=== PATIENT | female | born 1995 ===

== ENCOUNTER 2021-01-08 21:27 | Inpatient (IN) | payer OTHER ==
[2021-01-08] MEDS ORDERED: Water For Irrigation,Sterile 1,000 ML Container IRR PRN (22:35)
[2021-01-08] MEDS ORDERED: Terbutaline 1 MG/ML SDV SUBCUT PRN (22:35)
[2021-01-08] MEDS ORDERED: Nalbuphine 10 MG/1 ML Vial IVPUSH PRN (22:35)
[2021-01-08] MEDS ORDERED: Methylergonovine 0.2 MG/1 ML Amp IM PRN (22:35)
[2021-01-08] MEDS ORDERED: Sodium Chloride 0.9% 2.5 ML Syringe FLUSH PRN (22:35)
[2021-01-08] MEDS ORDERED: Sodium Chloride 0.9% 10 ML SDV IV PRN (22:35)
[2021-01-08] MEDS ORDERED: Lidocaine 1% 50 ML MDV INJECT PRN (22:35)
[2021-01-08] MEDS ORDERED: Misoprostol 200 MCG Tab PO PRN (22:35)
[2021-01-08] MEDS ORDERED: Sodium Chloride 0.9% 10 ML Syringe FLUSH PRN (22:35)
[2021-01-08] MEDS ORDERED: Ondansetron 4 MG/2 ML SDV IVPUSH PRN (22:35)
[2021-01-08] MEDS ORDERED: Carboprost Tromethamine 250 MCG/1 ML Amp IM PRN (22:35)
[2021-01-08] MEDS ORDERED: Butorphanol 1 MG/ML SDV IVPUSH PRN (22:35)
[2021-01-08] MEDS ORDERED: Tranexamic Acid 1,000 MG in Sodium Chloride 0.9% 100 ML IV PRN (22:35)
[2021-01-08] MEDS ORDERED: Oxytocin/0.9 % Sodium Chloride 30 UNIT/500 ML BAG IV SCH (22:45)
[2021-01-08] MEDS ORDERED: Misoprostol 25 MCG (1/4 of 100 MCG) Tab VAG PRN (23:00)
[2021-01-08] MEDS ORDERED: Ampicillin 2 GM in Sodium Chloride 0.9% 100 ML IV ONE (23:00)
[2021-01-08] MEDS: Lactated Ringers 1,000 ML IV SCH (23:18)
[2021-01-09] MEDS ORDERED: Sodium Chloride 0.9% 50 ML ONE (02:25)
[2021-01-09] MEDS ORDERED: Ampicillin 1 GM Vial ONE ×2 (02:25→07:26)
[2021-01-09] MEDS ORDERED: Ampicillin 1 GM in Sodium Chloride 0.9% 50 ML IV SCH (03:00)
[2021-01-09] MEDS ORDERED: Misoprostol 25 MCG (1/4 of 100 MCG) Tab VAG PRN (03:00)
[2021-01-09] MEDS: Lactated Ringers 1,000 ML IV SCH ×3 (11:20→21:48)
[2021-01-09] MEDS: Ampicillin 1 GM in Sodium Chloride 0.9% 50 ML IV SCH ×4 (11:30→23:30)
[2021-01-09] MEDS ORDERED: Ropivacaine HCl/PF 100 ML ONE (20:14)
[2021-01-09] MEDS ORDERED: fentaNYL 100 MCG/2 ML SDV ONE (20:14)
--- NOTE | 2021-01-09 21:17 | PCM.PREANE ---
Preanesthetic Assessment - Procedure Proposed Procedure: Continuous Labor Epidural - Anesthesia/Transfusion/Family Hx Anesthesia History: Prior Anesthesia Without Reaction Family History of Anesthesia Reaction: No Transfusion History: No Prior Transfusion(s) - Review of Systems General: No Symptoms Pulmonary: No Symptoms Cardiovascular: No Symptoms Gastrointestinal: No Symptoms Neurological: No Symptoms Other: Reports: None - Physical Assessment Height: 5 ft 5 in Weight: 129.274 kg ASA Class: 3 Mental Status: Alert & Oriented x3 Airway Class: Mallampati = 2 Dentition: Reports: Normal Dentition Thyro-Mental Finger Breadths: 3 Mouth Opening Finger Breadths: 3 ROM/Head Extension: Full Lungs: Clear to Auscultation, Normal Respiratory Effort Cardiovascular: Regular Rate, Regular Rhythm - Lab Values: Laboratory Last Values WBC 7.16 K/uL (4.0-11.0) 01/08/21 22:04 RBC 4.33 M/uL (4.30-5.90) 01/08/21 22:04 Hgb 11.5 g/dL (12.0-16.0) L 01/08/21 22:04 Hct 35.9 % (36.0-46.0) L 01/08/21 22:04 MCV 82.9 fL (80.0-98.0) 01/08/21 22:04 MCH 26.6 pg (27.0-32.0) L 01/08/21 22:04 MCHC 32.0 g/dL (31.0-37.0) 01/08/21 22:04 RDW Std Deviation 43.8 fl (28.0-62.0) 01/08/21 22:04 RDW Coeff of Vera 14 % (11.0-15.0) 01/08/21 22:04 Plt Count 217 K/uL (150-400) 01/08/21 22:04 MPV 11.90 fL (7.40-12.00) 01/08/21 22:04 Nucleated RBC % 0.0 /100WBC 01/08/21 22:04 Nucleated RBCs # 0 K/uL 01/08/21 22:04 SARS-CoV-2 RNA (JIL) NEGATIVE (NEGATIVE) 01/08/21 22:15 Blood Type O POSITIVE 01/08/21 22:04 Antibody Screen NEGATIVE 01/08/21 22:04 - Allergies Allergies/Adverse Reactions: Allergies Allergy/AdvReac Type Severity Reaction Status Date / Time Influenza Virus Vaccines Allergy Severe Anaphylactic Verified 01/08/21 22:30 Shock - Anesthesia Plan Free Text/Narrative:: Continuous Labor Epidural - Acknowledgements Anesthesia Type Planned: Epidural Pt an Appropriate Candidate for the Planned Anesthesia: Yes Alternatives and Risks of Anesthesia Discussed w Pt/Guardian: Yes Pt/Guardian Understands and Agrees with Anesthesia Plan: Yes PreAnesthesia Questionnaire HEENT History: Reports: Impaired Vision, Other (See Below) Other HEENT History: wears glasses or contact lenses for impaired vision correction. Cardiovascular History: Reports: None Respiratory History: Reports: None Other Gastrointestinal History: GERD with Genitourinary History: Reports: None FARM SPECIALIST History: Reports: : 1 Para: 0 LMP (Approximate): Musculoskeletal History: Reports: None Neurological History: Reports: None Psychiatric History: Reports: Depression Endocrine/Metabolic History: Reports: Obesity/BMI 30+ Hematologic History: Reports: None Immunologic History: Reports: None Oncologic (Cancer) History: Reports: None Dermatologic History: Reports: None - Infectious Disease History Infectious Disease History: Reports: None - Past Surgical History HEENT Surgical History: Reports: Oral Surgery Other HEENT Surgeries/Procedures: [place] Teeth Endocrine Surgical History: Reports: None Dermatological Surgical History: Reports: None - SUBSTANCE USE Tobacco Use Status *Q: Former Tobacco User Tobacco Use Within Last Twelve Months: Cigarettes Second Hand Smoke Exposure: No Recreational Drug Use History: No - HOME MEDS Home Medications: Home Meds Citalopram Hydrobromide [Celexa] 10 mg PO DAILY 01/08/21 [History] Famotidine 20 mg PO DAILY 01/08/21 [History] Famotidine [Pepcid] 20 mg PO DAILY 01/08/21 [History] Vits #93/Iron Fum/FA [ Formula Tablet] 1 each PO DAILY 01/08/21 [History] - CURRENT (IN HOUSE) MEDS Current Meds: Current Medications Butorphanol Tartrate (Stadol) 1 mg IVPUSH Q1H PRN PRN Reason: Pain Carboprost Tromethamine (Hemabate Ds) 250 mcg IM ASDIRECTED PRN PRN Reason: Post Hemorrhage Oxytocin/Sodium Chloride (Oxytocin 30 Unit/500 Ml-Ns) 30 unit in 500 mls @ 999 mls/hr IV TITRATE JONO Tranexamic Acid 1,000 mg/ (Sodium Chloride) 110 mls @ 660 mls/hr IV ONETIME PRN PRN Reason: Bleeding Oxytocin/Sodium Chloride (Oxytocin 30 Unit/500 Ml-Ns) 30 unit in 500 mls @ 2 mls/hr IV TITRATE [facility]; Protocol Last Titration: 01/09/21 19:19 Dose: 14 munits/min, 14 mls/hr Documented by: Lactated Ringer's (Ringers, Lactated) 1,000 mls @ 150 mls/hr IV ASDIRECTED [facility] Last Admin: 01/09/21 19:57 Dose: 999 mls/hr Documented by: Ampicillin Sodium 1 gm/ Sodium (Chloride) 50 mls @ 100 mls/hr IV Q4H [facility] Last Admin: 01/09/21 19:37 Dose: 100 mls/hr Documented by: Lidocaine HCl (Xylocaine 1%) 50 ml INJECT ONETIME PRN PRN Reason: Laceration repair Methylergonovine Maleate (Methergine) 0.2 mg IM ASDIRECTED PRN PRN Reason: Post Hemorrhage Misoprostol (Cytotec) 200 mcg PO ONETIME PRN PRN Reason: Post Hemorrhage Misoprostol (Cytotec) 25 mcg VAG ONETIME PRN PRN Reason: Cervical Ripening Last Admin: 01/08/21 23:30 Dose: 25 mcg Documented by: Misoprostol (Cytotec) 25 mcg VAG Q4H PRN PRN Reason: Cervical Ripening Last Admin: 01/09/21 03:35 Dose: 25 mcg Documented by: Nalbuphine HCl (Nubain) 10 mg IVPUSH Q1H PRN PRN Reason: Pain (severe 7-10) Ondansetron HCl (Zofran) 4 mg IVPUSH Q4H PRN PRN Reason: Nausea/Vomiting Sodium Chloride (Saline Flush) 10 ml FLUSH ASDIRECTED PRN PRN Reason: Keep Vein Open Sodium Chloride (Saline Flush) 2.5 ml FLUSH ASDIRECTED PRN PRN Reason: Keep Vein Open Sodium Chloride (Normal Saline) 10 ml IV ASDIRECTED PRN PRN Reason: IV Use Sterile Water (Sterile Water For Irrigation) 1,000 ml IRR ASDIRECTED PRN PRN Reason: delivery Terbutaline Sulfate (Brethine) 0.25 mg SUBCUT ASDIRECTED PRN PRN Reason: Tacysystole Discontinued Medications Ampicillin Sodium (Ampicillin) Confirm Administered Dose 1 gm .ROUTE .STK-MED ONE Stop: 01/09/21 02:26 Last Admin: 01/09/21 03:11 Dose: 1 gm Documented by: Ampicillin Sodium (Ampicillin) Confirm Administered Dose 1 gm .ROUTE .STK-MED ONE Stop: 01/09/21 07:27 Last Admin: 01/09/21 07:34 Dose: 1 gm Documented by: Fentanyl (Sublimaze) Confirm Administered Dose 200 mcg .ROUTE .STK-MED ONE Stop: 01/09/21 20:15 Ampicillin Sodium 2 gm/ Sodium (Chloride) 100 mls @ 200 mls/hr IV ONETIME ONE Stop: 01/08/21 23:29 Last Admin: 01/08/21 23:19 Dose: 200 mls/hr Documented by: Ampicillin Sodium 1 gm/ Sodium (Chloride) 50 mls @ 100 mls/hr IV Q4H JON[facility] Last Admin: 01/09/21 03:11 Dose: Not Given Documented by: Sodium Chloride (Normal Saline) Confirm Administered Dose 50 mls @ as directed .ROUTE .STK-MED ONE Stop: 01/09/21 02:26 Last Admin: 01/09/21 03:11 Dose: 100 mls/hr Documented by: Ropivacaine (Naropin 0.2%) Confirm Administered Dose 100 mls @ as directed .ROUTE .STK-MED ONE Stop: 01/09/21 20:15
[2021-01-09 23:11] LABS: BLOOD UREA NITROGEN,BUN 7 mg/dL (7.0-18.0); CARBON DIOXIDE,CO2 19.3 mmol/L (21.0-32.0); CHLORIDE,CL 105 mmol/L (98-107); GLUCOSE RANDOM 80 mg/dL (74-106); POTASSIUM,K 3.6 mmol/L (3.5-5.1); SODIUM,NA 139 mmol/L (136-145)
[2021-01-10] MEDS: Ampicillin 1 GM in Sodium Chloride 0.9% 50 ML IV SCH (03:21)
[2021-01-10] MEDS: Lactated Ringers 1,000 ML IV SCH (03:21)
[2021-01-10] MEDS: Oxytocin/0.9 % Sodium Chloride 30 UNIT/500 ML BAG IV SCH ×2 (06:07→06:27)
[2021-01-10] MEDS ORDERED: Acetaminophen 500 MG Tab PO PRN ×2 (06:59)
[2021-01-10] MEDS ORDERED: oxyCODONE 5 MG Tab PO PRN (06:59)
[2021-01-10] MEDS ORDERED: Benzocaine/Menthol 20%-0.5% Spray 78 GM Cannister TOP PRN (06:59)
[2021-01-10] MEDS ORDERED: Bisacodyl 10 MG Supp RECTAL PRN (06:59)
[2021-01-10] MEDS ORDERED: Lanolin 100% Cream 7 GM Tube TOP PRN (06:59)
[2021-01-10] MEDS ORDERED: Witch Hazel Medicated Pads 40/Jar TOP PRN (06:59)
[2021-01-10] MEDS ORDERED: Ibuprofen 800 MG Tab PO PRN (06:59)
[2021-01-10] MEDS ORDERED: Ibuprofen 400 MG Tab PO PRN (06:59)
[2021-01-10] MEDS ORDERED: Docusate Sodium 100 MG Cap PO PRN (06:59)
--- NOTE | 2021-01-10 07:04 | PCM.DEL ---
L & D Note - General Info Date of Service: 01/10/21 - Delivery Note Cervical Ripening Method: Balloon Device, Misoprostil, Oxytocin Delivery Outcome: Livebirth Infant Delivery Method: Spontaneous Vaginal Delivery-Single Presentation: Left Occiput Anterior (AKIN) Nuchal Cord: Present Anesthesia Type: Epidural Anesthetic: Lidocaine (Xylocaine) 1% Plain Local Anesthetic Volume: 3cc Amniotic Fluid Description: Clear Episiotomy Type: Right Mediolateral Laceration: Other (clitorial ) Suture type: Vicryl Suture size: 3-0 Placenta: Intact Cord: 3 Vessels Estimated Blood Loss: 300 Resuscitation Needed: No : Suctioned, Bulb Syringe Score 1 min: 6 Score 5 min: 8 Delivery Comments (Free Text/Narrative):: Live Female delivered at 6.06am , 6/8 weight 3590g - General Info Date of Service: 01/10/21 - Patient Data Weight - Most Recent: 129.274 kg Lab Results Last 24 Hours: Laboratory Results - last 24 hr 01/09/21 01/09/21 01/09/21 Range/Units 22:20 22:20 22:35 Sodium 139 (136-145) mmol/L Potassium 3.6 (3.5-5.1) mmol/L Chloride 105 (98-107) mmol/L Carbon Dioxide 19.3 L (21.0-32.0) mmol/L BUN 7 (7.0-18.0) mg/dL Creatinine 0.7 (0.6-1.0) mg/dL Est Cr Clr Drug Dosing 109.59 mL/min Estimated GFR (MDRD) > 60.0 ml/min Glucose 80 (74-106) mg/dL Calcium 7.8 L (8.5-10.1) mg/dL Total Bilirubin 0.4 (0.2-1.0) mg/dL AST 17 (15-37) IU/L ALT 16 (14-63) IU/L Alkaline Phosphatase 169 H (46-116) U/L Total Protein 5.9 L (6.4-8.2) g/dL Albumin 2.1 L (3.4-5.0) g/dL Globulin 3.8 (2.6-4.0) g/dL Albumin/Globulin Ratio 0.6 L (0.9-1.6) Urine Color YELLOW Urine Appearance CLEAR Urine pH 5.5 (5.0-8.0) Ur Specific [place] 1.010 (1.001-1.035) Urine Protein NEGATIVE (NEGATIVE) mg/dL Urine Glucose (UA) NEGATIVE (NEGATIVE) mg/dL Urine Ketones 40 H (NEGATIVE) mg/dL Urine Occult Blood MODERATE H (NEGATIVE) Urine Nitrite NEGATIVE (NEGATIVE) Urine Bilirubin NEGATIVE (NEGATIVE) Urine Urobilinogen 0.2 (<2.0) EU/dL Ur Leukocyte Esterase NEGATIVE (NEGATIVE) Urine RBC 1-3 (0-2/HPF) Urine WBC 0-2 (0-5/HPF) Ur Epithelial Cells FEW (NONE-FEW) Amorphous Sediment LIGHT (NEGATIVE) Urine Bacteria FEW (NEGATIVE) Urine Mucus LIGHT (NONE-MOD) Ur Random Creatinine 48.3 mg/dL U Random Total Protein 6.1 (<11.9) mg/dL Protein/Creatinin Ratio 0.1 Med Orders - Current: Current Medications Butorphanol Tartrate (Stadol) 1 mg IVPUSH Q1H PRN PRN Reason: Pain Carboprost Tromethamine (Hemabate Ds) 250 mcg IM ASDIRECTED PRN PRN Reason: Post Hemorrhage Oxytocin/Sodium Chloride (Oxytocin 30 Unit/500 Ml-Ns) 30 unit in 500 mls @ 999 mls/hr IV TITRATE [facility] Last Admin: 01/10/21 06:27 Dose: 250 mls/hr Documented by: Tranexamic Acid 1,000 mg/ (Sodium Chloride) 110 mls @ 660 mls/hr IV ONETIME PRN PRN Reason: Bleeding Oxytocin/Sodium Chloride (Oxytocin 30 Unit/500 Ml-Ns) 30 unit in 500 mls @ 2 mls/hr IV TITRATE [facility]; Protocol Last Titration: 01/10/21 06:07 Dose: 0 munits/min, 0 mls/hr Documented by: Lactated Ringer's (Ringers, Lactated) 1,000 mls @ 150 mls/hr IV ASDIRECTED JONO Last Admin: 01/10/21 03:21 Dose: 150 mls/hr Documented by: Lidocaine HCl (Xylocaine 1%) 50 ml INJECT ONETIME PRN PRN Reason: Laceration repair Last Admin: 01/10/21 06:05 Dose: 50 ml Documented by: Methylergonovine Maleate (Methergine) 0.2 mg IM ASDIRECTED PRN PRN Reason: Post Hemorrhage Misoprostol (Cytotec) 200 mcg PO ONETIME PRN PRN Reason: Post Hemorrhage Nalbuphine HCl (Nubain) 10 mg IVPUSH Q1H PRN PRN Reason: Pain (severe 7-10) Ondansetron HCl (Zofran) 4 mg IVPUSH Q4H PRN PRN Reason: Nausea/Vomiting Sodium Chloride (Saline Flush) 10 ml FLUSH ASDIRECTED PRN PRN Reason: Keep Vein Open Sodium Chloride (Saline Flush) 2.5 ml FLUSH ASDIRECTED PRN PRN Reason: Keep Vein Open Sodium Chloride (Normal Saline) 10 ml IV ASDIRECTED PRN PRN Reason: IV Use Sterile Water (Sterile Water For Irrigation) 1,000 ml IRR ASDIRECTED PRN PRN Reason: delivery Last Admin: 01/10/21 06:28 Dose: 1,000 ml Documented by: Terbutaline Sulfate (Brethine) 0.25 mg SUBCUT ASDIRECTED PRN PRN Reason: Tacysystole Discontinued Medications Ampicillin Sodium (Ampicillin) Confirm Administered Dose 1 gm .ROUTE .STK-MED ONE Stop: 01/09/21 02:26 Last Admin: 01/09/21 03:11 Dose: 1 gm Documented by: Ampicillin Sodium (Ampicillin) Confirm Administered Dose 1 gm .ROUTE .STK-MED ONE Stop: 01/09/21 07:27 Last Admin: 01/09/21 07:34 Dose: 1 gm Documented by: Fentanyl (Sublimaze) Confirm Administered Dose 200 mcg .ROUTE .STK-MED ONE Stop: 01/09/21 20:15 Last Admin: 01/09/21 23:32 Dose: Not Given Documented by: Ampicillin Sodium 2 gm/ Sodium (Chloride) 100 mls @ 200 mls/hr IV ONETIME ONE Stop: 01/08/21 23:29 Last Admin: 01/08/21 23:19 Dose: 200 mls/hr Documented by: Ampicillin Sodium 1 gm/ Sodium (Chloride) 50 mls @ 100 mls/hr IV Q4H [facility]ON[facility] Last Admin: 01/09/21 03:11 Dose: Not Given Documented by: Sodium Chloride (Normal Saline) Confirm Administered Dose 50 mls @ as directed .ROUTE .STK-MED ONE Stop: 01/09/21 02:26 Last Admin: 01/09/21 03:11 Dose: 100 mls/hr Documented by: Ampicillin Sodium 1 gm/ Sodium (Chloride) 50 mls @ 100 mls/hr IV Q4H [facility] Last Admin: 01/10/21 03:21 Dose: 100 mls/hr Documented by: Ropivacaine (Naropin 0.2%) Confirm Administered Dose 100 mls @ as directed .ROUTE .STK-MED ONE Stop: 01/09/21 20:15 Last Admin: 01/09/21 23:32 Dose: Not Given Documented by: Misoprostol (Cytotec) 25 mcg VAG ONETIME PRN PRN Reason: Cervical Ripening Last Admin: 01/08/21 23:30 Dose: 25 mcg Documented by: Misoprostol (Cytotec) 25 mcg VAG Q4H PRN PRN Reason: Cervical Ripening Last Admin: 01/09/21 03:35 Dose: 25 mcg Documented by: - Problem List & Annotations (1) Vaginal delivery SNOMED Code(s): 201153631 Code(s): O80 - ENCOUNTER FOR FULL-TERM UNCOMPLICATED DELIVERY Status: Acute Current Visit: Yes - Problem List Review Problem List Initiated/Reviewed/Updated: Yes - My Orders Last 24 Hours: My Active Orders 01/10/21 06:59 Acetaminophen [Tylenol Extra Strength] 1,000 mg PO Q4H PRN Acetaminophen [Tylenol Extra Strength] 500 mg PO Q4H PRN Benzocaine/Menthol [Dermoplast Pain Relief 20%-0.5% [place]] 78 gm TOP ASDIRECTED PRN Docusate Sodium [Colace] 100 mg PO BID PRN Ibuprofen [Motrin] 400 mg PO Q4H PRN Ibuprofen [Motrin] 800 mg PO Q6H PRN Lanolin [Lansinoh HPA] See Dose Instructions TOP ASDIRECTED PRN bisacodyL [Dulcolax] 10 mg RECTAL ONETIME PRN oxyCODONE 5 mg PO Q2H PRN witch Tonny [Tucks] 1 pad TOP ASDIRECTED PRN Resuscitation Status Routine 01/10/21 07:00 Patient Status [ADT] Routine May Shower [RC] ASDIRECTED Up ad Ragini [RC] ASDIRECTED Vital Signs [RC] PER UNIT ROUTINE Assess Lochia [WOMSER] Per Unit Routine Assess Uterine Involution [WOMSER] Per Unit Routine Peripheral IV Discontinue [OM.PC] Routine 01/11/21 05:11 HEMOGLOBIN/HEMATOCRIT,HH [HEME] Timed
--- NOTE | 2021-01-10 08:40 | OR ---
SURGEON: NORMA ALVAREZ DATE OF PROCEDURE: 01/10/2021 PREOPERATIVE DIAGNOSIS: A 25-year-old, G1, P0, at 39 weeks 3 days, admitted for induction of labor. POSTOPERATIVE DIAGNOSIS: A 25-year-old, G1, P0, at 39 weeks 3 days, admitted for induction of labor. PROCEDURE: Normal spontaneous vaginal delivery and repair of right mediolateral episiotomy and also clitoral laceration. ESTIMATED BLOOD LOSS: 300. IV FLUIDS: Pitocin running. COMPLICATION: None. ANESTHESIA: Epidural. NOTES AND FINDING: Live female delivered at 6:06 a.m. score is 6 and 8. Weight is 3590 g. BRIEF HISTORY ABOUT THE PATIENT: She is a 25-year-old, G1, P0, worked in for induction of labor. She was late transfer to [facility] from [facility]. When she started induction, she got Cytotec. After the Cytotec she got Cook Balloon and pitocin was started. She was AROM'd . IUPC was also placed. She had intermittent episodes of category 2 heart tracing, which recovered to the baseline. PROCEDURE: The patient then made normal labor progress and became fully dilated. The patient being fully dilated, she was encouraged to push. The introitus was noted to be constricted , hence lidocaine injected at the RML region of the posterior fourchette, Then a bandit scissor was used to make a 1cm incision at the infiltrated region. With good pushing effort, she delivered the head. There was a cord noted around the neck. She spontaneously pushed the body out. was placed on maternal abdomen. Delayed cord clamping was done for about 1 minute and then infant was handed over to the nursery nurses. The placenta was then delivered via controlled cord traction. The cord blood gases were obtained. The perineum was inspected. There was a midline clitoral laceration about 1 cm, which was repaired with 3-0 Vicryl. Mediolateral episiotomy was also repaired. Uterus was noted to be contracted. The patient tolerated the procedure well. All pad counts were correct x2. RADHA / LUCA /[id number] [facility] SYSTEMAbner
--- NOTE | 2021-01-10 10:55 | PCM48HPAN ---
Post Anesthesia Note - EVALUATION WITHIN 48HRS OF ANESTHETIC Vital Signs in Normal Range: Yes Patient Participated in Evaluation: Yes Respiratory Function Stable: Yes Airway Patent: Yes Cardiovascular Function Stable: Yes Hydration Status Stable: Yes Pain Control Satisfactory: Yes Nausea and Vomiting Control Satisfactory: Yes Mental Status Recovered: Yes Vital Signs: Last Vital Signs Temp 36.9 C 01/10/21 09:50 Pulse 67 01/10/21 09:50 Resp 16 01/10/21 09:50 BP 129/71 01/10/21 09:50 Pulse Ox 95 01/10/21 09:50 - COMMENTS/OBSERVATIONS Free Text/Narrative:: No anesthesia complications or concerns noted.
--- NOTE | 2021-01-11 08:50 | PCM.PNPP ---
- General Info Date of Service: 01/11/21 Functional Status: Reports: Pain Controlled, Tolerating Diet, Ambulating, Urinating - Review of Systems General: Reports: No Symptoms HEENT: Reports: No Symptoms Pulmonary: Reports: No Symptoms Cardiovascular: Reports: No Symptoms Gastrointestinal: Reports: No Symptoms Genitourinary: Reports: No Symptoms Musculoskeletal: Reports: No Symptoms Skin: Reports: No Symptoms Neurological: Reports: No Symptoms Psychiatric: Reports: No Symptoms - Patient Data Vital Signs - Most Recent: Last Vital Signs Temp 36.4 C 01/11/21 07:54 Pulse 57 L 01/11/21 07:54 Resp 16 01/11/21 07:54 BP 147/77 H 01/11/21 07:54 Pulse Ox 97 01/11/21 07:54 Weight - Most Recent: 285 lb Lab Results - Last 24 Hours: Laboratory Results - last 24 hr 01/08/21 01/11/21 Range/Units 22:04 06:06 Hgb 10.4 L (12.0-16.0) g/dL Hct 32.5 L (36.0-46.0) % RPR Non-Reac (Non-Reac) Med Orders - Current: Current Medications Acetaminophen (Tylenol Extra Strength) 500 mg PO Q4H PRN PRN Reason: Pain Acetaminophen (Tylenol Extra Strength) 1,000 mg PO Q4H PRN PRN Reason: Pain Benzocaine/Menthol (Dermoplast Pain Relief 20%-0.5% [place]) 78 gm TOP ASDIRECTED PRN PRN Reason: Perineal Comfort Measure Last Admin: 01/10/21 08:30 Dose: 1 canister Documented by: Bisacodyl (Dulcolax) 10 mg RECTAL ONETIME PRN PRN Reason: Constipation Docusate Sodium (Colace) 100 mg PO BID PRN PRN Reason: Constipation Emollient Ointment (Lansinoh Hpa) 0 gm TOP ASDIRECTED PRN PRN Reason: Sore Nipples Last Admin: 01/10/21 08:29 Dose: 1 tube Documented by: Ibuprofen (Motrin) 400 mg PO Q4H PRN PRN Reason: Pain Ibuprofen (Motrin) 800 mg PO Q6H PRN PRN Reason: Pain Last Admin: 01/10/21 23:25 Dose: 800 mg Documented by: Oxycodone HCl (Oxycodone) 5 mg PO Q2H PRN PRN Reason: Pain Sodium Chloride (Saline Flush) 10 ml FLUSH ASDIRECTED PRN PRN Reason: Keep Vein Open Sodium Chloride (Saline Flush) 2.5 ml FLUSH ASDIRECTED PRN PRN Reason: Keep Vein Open Sodium Chloride (Normal Saline) 10 ml IV ASDIRECTED PRN PRN Reason: IV Use Witangeline Villalbael (Tucks) 1 pad TOP ASDIRECTED PRN PRN Reason: comfort care Last Admin: 01/10/21 08:29 Dose: 1 pad Documented by: Discontinued Medications Ampicillin Sodium (Ampicillin) Confirm Administered Dose 1 gm .ROUTE .STK-MED ONE Stop: 01/09/21 02:26 Last Admin: 01/09/21 03:11 Dose: 1 gm Documented by: Ampicillin Sodium (Ampicillin) Confirm Administered Dose 1 gm .ROUTE .STK-MED ONE Stop: 01/09/21 07:27 Last Admin: 01/09/21 07:34 Dose: 1 gm Documented by: Butorphanol Tartrate (Stadol) 1 mg IVPUSH Q1H PRN PRN Reason: Pain Carboprost Tromethamine (Hemabate Ds) 250 mcg IM ASDIRECTED PRN PRN Reason: Post Hemorrhage Fentanyl (Sublimaze) Confirm Administered Dose 200 mcg .ROUTE .STK-MED ONE Stop: 01/09/21 20:15 Last Admin: 01/09/21 23:32 Dose: Not Given Documented by: Oxytocin/Sodium Chloride (Oxytocin 30 Unit/500 Ml-Ns) 30 unit in 500 mls @ 999 mls/hr IV TITRATE JONO Last Admin: 01/10/21 06:27 Dose: 250 mls/hr Documented by: Tranexamic Acid 1,000 mg/ (Sodium Chloride) 110 mls @ 660 mls/hr IV ONETIME PRN PRN Reason: Bleeding Oxytocin/Sodium Chloride (Oxytocin 30 Unit/500 Ml-Ns) 30 unit in 500 mls @ 2 mls/hr IV TITRATE JONO; Protocol Last Titration: 01/10/21 06:07 Dose: 0 munits/min, 0 mls/hr Documented by: Ampicillin Sodium 2 gm/ Sodium (Chloride) 100 mls @ 200 mls/hr IV ONETIME ONE Stop: 01/08/21 23:29 Last Admin: 01/08/21 23:19 Dose: 200 mls/hr Documented by: Ampicillin Sodium 1 gm/ Sodium (Chloride) 50 mls @ 100 mls/hr IV Q4H [facility] Last Admin: 01/09/21 03:11 Dose: Not Given Documented by: Lactated Ringer's (Ringers, Lactated) 1,000 mls @ 150 mls/hr IV ASDIRECTED JONO Last Admin: 01/10/21 03:21 Dose: 150 mls/hr Documented by: Sodium Chloride (Normal Saline) Confirm Administered Dose 50 mls @ as directed .ROUTE .[facility]-MED ONE Stop: 01/09/21 02:26 Last Admin: 01/09/21 03:11 Dose: 100 mls/hr Documented by: Ampicillin Sodium 1 gm/ Sodium (Chloride) 50 mls @ 100 mls/hr IV Q4H [facility] Last Admin: 01/10/21 03:21 Dose: 100 mls/hr Documented by: Ropivacaine (Naropin 0.2%) Confirm Administered Dose 100 mls @ as directed .ROUTE .[facility] ONE Stop: 01/09/21 20:15 Last Admin: 01/09/21 23:32 Dose: Not Given Documented by: Lidocaine HCl (Xylocaine 1%) 50 ml INJECT ONETIME PRN PRN Reason: Laceration repair Last Admin: 01/10/21 06:05 Dose: 50 ml Documented by: Methylergonovine Maleate (Methergine) 0.2 mg IM ASDIRECTED PRN PRN Reason: Post Hemorrhage Misoprostol (Cytotec) 200 mcg PO ONETIME PRN PRN Reason: Post Hemorrhage Misoprostol (Cytotec) 25 mcg VAG ONETIME PRN PRN Reason: Cervical Ripening Last Admin: 01/08/21 23:30 Dose: 25 mcg Documented by: Misoprostol (Cytotec) 25 mcg VAG Q4H PRN PRN Reason: Cervical Ripening Last Admin: 01/09/21 03:35 Dose: 25 mcg Documented by: Nalbuphine HCl (Nubain) 10 mg IVPUSH Q1H PRN PRN Reason: Pain (severe 7-10) Ondansetron HCl (Zofran) 4 mg IVPUSH Q4H PRN PRN Reason: Nausea/Vomiting Sterile Water (Sterile Water For Irrigation) 1,000 ml IRR ASDIRECTED PRN PRN Reason: delivery Last Admin: 01/10/21 06:28 Dose: 1,000 ml Documented by: Terbutaline Sulfate (Brethine) 0.25 mg SUBCUT ASDIRECTED PRN PRN Reason: Tacysystole - Interaction Disposition, : [place] at Bedside Infant Interaction: Holding Infant Feeding: Attempted ; Nursed Fair/Poor Support Person: Significant Other - Recovery Exam Fundal Tone: Firm Fundal Level: At Umbilicus Fundal Placement: Midline Lochia Amount: Scant, Small Lochia Color: Rubra/Red Perineum Description: Edematous Episiotomy/Laceration: Approximated Bladder Status: Nonpalpable, Voiding Urinary Elimination: Voided - Exam General: Alert, Oriented, Cooperative, No Acute Distress HEENT: Pupils Equal, Pupils Reactive Neck: Supple, Trachea Midline, No JVD Lungs: Normal Respiratory Effort GI/Abdominal Exam: Soft, Non-Tender, No Distention Extremities: Normal Inspection, Normal Range of Motion, Non-Tender, No Pedal Edema Skin: Warm, Dry, Intact Wound/Incisions: Healing Well Neurological: No New Focal Deficit Psy/Mental Status: Alert, Normal Affect, Normal Mood - Problem List Review Problem List Initiated/Reviewed/Updated: Yes - My Orders Last 24 Hours: My Active Orders 01/11/21 08:47 Ready for Discharge [RC] PER UNIT ROUTINE - Assessment Assessment:: 25yo PPD1 s/p , stable and recovering well. - Plan Plan:: - Recovering well, ambulating and tolerating PO - Hgb 10.4, denies s/s of anemia - continue to breastfeed Plan for discharge home today, reviewed care instructions.
== END 2021-01-11 11:00 | disposition home or self-care (01) | DRG 807 ==
LOC: MW.OBCHECK 21:27 → MW.OB 21:28 → MW.OBCHECK 22:35 → OBSVTOIN 01-10 06:06 → MW.OB 01-10 09:58
PROVIDERS: ADMIT Obstetrics & Gynecology; ATTEND Obstetrics & Gynecology
PROC: 10E0XZZ Delivery of Products of Conception, External Approach (ICD-10-PCS; principal; 2021-01-10)
PROC: 0U7C7ZZ Dilation of Cervix, Via Natural or Artificial Opening (ICD-10-PCS; 2021-01-10)
PROC: 3E0P7VZ Introduction of Hormone into Female Reproductive, Via Natural or Artificial Opening (ICD-10-PCS; 2021-01-10)
PROC: 3E033VJ Introduction of Other Hormone into Peripheral Vein, Percutaneous Approach (ICD-10-PCS; 2021-01-10)
PROC: 3E0R3BZ Introduction of Anesthetic Agent into Spinal Canal, Percutaneous Approach (ICD-10-PCS; 2021-01-10)
PROC: 0W8NXZZ Division of Female Perineum, External Approach (ICD-10-PCS; 2021-01-10)
PROC: 4A1HXCZ Monitoring of Products of Conception, Cardiac Rate, External Approach (ICD-10-PCS; 2021-01-10)
PROC: 10H07YZ Insertion of Other Device into Products of Conception, Via Natural or Artificial Opening (ICD-10-PCS; 2021-01-10)
DX: O99.824 Streptococcus B carrier state complicating childbirth (principal); Z37.0 Single live birth; Z3A.39 39 weeks gestation of pregnancy; O99.214 Obesity complicating childbirth; E66.9 Obesity, unspecified; O69.81X0 Labor and delivery complicated by cord around neck, without compression, not applicable or unspecified; Z20.822 Contact with and (suspected) exposure to COVID-19
CPT/HCPCS: 36415; 51702; 59025; 59200; 59409; 80053; 81001; 82570; 84156; 85014; 85018; 85027; 86592; 86850; 86900; 86901; A9270-GY; J0290; J2001; J2590; J7120; U0002